=== PATIENT | male | born 1965 | race Caucasian/White ===

== ENCOUNTER 2018-01-27 09:54 | Day surgery (SDC) | payer BC ==
[2018-01-27] MEDS: NS 1,000 ML IV (10:00)
[2018-01-27] MEDS ORDERED: LIDOCAINE 2% INJ 100 MG/5 ML SDV (FOR ANES.) As Ordered (10:28)
[2018-01-27] MEDS ORDERED: PROPOFOL 200 MG/20 ML VIAL As Ordered (10:28)
== END 2018-01-27 12:32 | disposition home or self-care (01) ==
LOC: M OPP 09:54
DX: Z12.11 Encounter for screening for malignant neoplasm of colon (principal); Z86.010 Personal history of colon polyps; K64.0 First degree hemorrhoids; K57.32 Diverticulitis of large intestine without perforation or abscess without bleeding; K21.9 Gastro-esophageal reflux disease without esophagitis; R12 Heartburn
CPT/HCPCS: G0105

== ENCOUNTER 2023-07-29 11:51 | Day surgery (SDC) | payer BC, OTHER ==
[~2023-07-29] VITALS: Ht 188 cm; Wt 96.8 kg
[~2023-07-29 11:51] MED LIST: ALEV220T22 PO; ALEV220T26 PO; GABA-1171 PO; NS 1,000 ML IV ONE
[2023-07-29] MEDS ORDERED: propofoL 200 MG/20 ML VIAL As Ordered ONE (13:12)
[2023-07-29] MEDS ORDERED: LIDOCAINE 2% 100MG/5ML SDV (FOR ANES.) As Ordered ONE (13:12)
[2023-07-29 13:55] VITALS: TEMP 96.8
[2023-07-29 14:18] VITALS: BP 99/69; O2SAT 96
== END 2023-07-29 14:21 | disposition home or self-care (01) ==
LOC: M OPP 11:51
PROVIDERS: ATTEND Internal Medicine Gastroenterology
DX: Z12.11 Encounter for screening for malignant neoplasm of colon (principal); Z86.010 Personal history of colon polyps; K64.0 First degree hemorrhoids; Z79.1 Long term (current) use of non-steroidal anti-inflammatories (NSAID); Z79.891 Long term (current) use of opiate analgesic